=== PATIENT | female | born 1945 ===

== ENCOUNTER 2022-12-11 04:40 | Day surgery (SDC) | payer OTHER ==
[~2022-12-11] VITALS: Ht 152.4 cm; Wt 54.4 kg
[~2022-12-11 04:40] MED LIST: CLARIT PO; LOSARTAN-HCTZ1 EACH PO; PREVACID30 MG PO
[2022-12-11] MEDS ORDERED: MORGIDOX100 MG PO (08:30)
[2022-12-11] MEDS ORDERED: NAPR500T14 PO (08:30)
== END 2022-12-11 14:20 | disposition home or self-care (01) ==
LOC: CIR.AMB 04:40
PROVIDERS: ATTEND Obstetrics & Gynecology
DX: N84.0 Polyp of corpus uteri (principal); N95.0 Postmenopausal bleeding; D25.0 Submucous leiomyoma of uterus; R10.2 Pelvic and perineal pain; I10 Essential (primary) hypertension; Z20.822 Contact with and (suspected) exposure to COVID-19